=== PATIENT | male | born 1985 | race Caucasian/White ===

== ENCOUNTER 2024-08-04 08:57 | Emergency (ER) | payer BC ==
[~2024-08-04] VITALS: Ht 177.8 cm; Wt 122.9 kg
[2024-08-04] MEDS: normal saline 1000ml 1,000 ML IV ONE (11:19)
[2024-08-04] MEDS: dexamethasone sod phosphate 10mg/ml inj IV STA (11:19)
[2024-08-04] MEDS: acetaminophen 1,000mg/100ml IV 100 ML IV ONE (11:19)
[2024-08-04 11:38] LABS: MEAN CORPUSCULAR HEMOGLOBIN 29.9 PG (27.0-31.0); MEAN CORPUSCULAR HGB CONC 30.9 g/dL (33.0-36.5); MEAN CORPUSCULAR VOLUME 96.9 FL (78-98); MEAN PLATELET VOLUME 12.7 FL (7.4-10.4); RED BLOOD COUNT 1.42 X10'6 (4.70-6.10); RED CELL DISTRIBUTION WIDTH 16.7 % (11.5-14.5)
[2024-08-04 11:52] LABS: MONOTEST NEGATIVE (Neg)
[2024-08-04 11:56] LABS: ALBUMIN 2.5 G/DL (3.4-5.0); ANION GAP 12 (8-16); BLOOD UREA NITROGEN 15 MG/DL (7-18); BUN/CREATININE RATIO 9.8 (10.0-20.0); CALCIUM 8.5 MG/DL (8.5-10.1); CHLORIDE 96 MMOL/L (99-107); CREATININE 1.53 MG/DL (0.60-1.10); GLUCOSE 163 MG/DL (70-104); POTASSIUM 4.1 MMOL/L (3.5-5.1); SODIUM 130 MMOL/L (135-145); TOTAL CARBON DIOXIDE 22.3 MMOL/L (24-32); eCRCL 68 ML/MIN; eGFR 51 ML/MIN
[2024-08-04 11:58] LABS: HEMATOCRIT 13.8 % (42.0-52.0)
[2024-08-04 11:59] LABS: HEMOGLOBIN 4.7 g/dl (14.0-17.9); PLATELET COUNT 15 X10'3 (140-440)
[2024-08-04 12:00] LABS: WHITE BLOOD COUNT 372.1 X10'3 (4.5-11.0)
[2024-08-04] MEDS: piperacillin/tazo 4.5gm/100ml 100 ML IV ONE (12:05)
[2024-08-04 12:26] LABS: RED CELL DISTRIBUTION WIDTH 16.2 % (11.5-14.5)
[2024-08-04 12:29] LABS: MEAN CORPUSCULAR HGB CONC 33.5 g/dL (33.0-36.5); MEAN CORPUSCULAR VOLUME 95.4 FL (78-98); MEAN PLATELET VOLUME 10.5 FL (7.4-10.4); RED BLOOD COUNT 2.15 X10'6 (4.70-6.10)
[2024-08-04 12:34] LABS: HEMATOCRIT 20.5 % (42.0-52.0); HEMOGLOBIN 6.9 g/dl (14.0-17.9)
[2024-08-04 12:35] LABS: PLATELET COUNT 15 X10'3 (140-440)
[2024-08-04 13:03] LABS: WHITE BLOOD COUNT 271.3 X10'3 (4.5-11.0)
[2024-08-04 14:59] LABS: TOTAL CELLS COUNTED 100
[2024-08-04 15:03] LABS: ANISOCYTOSIS 1+; PLATELET ESTIMATE DECREASED
[2024-08-04 15:04] LABS: SCHISTOCYTES FEW
[2024-08-04 15:18] LABS: BILIRUBIN,URINE NEGATIVE (Neg); CLARITY,URINE CLEAR (Clear); COLOR,URINE YELLOW (Yellow); GLUCOSE, URINE NEGATIVE (Neg); KETONES,URINE TRACE mg/dl (Neg); LEUKOCYTE ESTERASE ,URINE NEGATIVE (Neg); NITRITES, URINE NEGATIVE (Neg); OCCULT BLOOD,URINE TRACE-INTACT (Neg); PROTEIN,URINE NEGATIVE (Neg); UROBILINOGEN,URINE 0.2 E.U/dL (0.2-1.0)
[2024-08-04 15:20] LABS: UA COLLECTION TYPE CLN CATCH MIDSTREAM
[2024-08-04 15:37] LABS: BACTERIA,URINE FEW /HPF (Neg); RBC,URINE NONE SEEN /HPF (0-2); SQUAMOUS EPITHELIAL CELL,UR FEW /LPF (FEW); WBC,URINE 20-30 /HPF (0-4)
[2024-08-04 17:32] LABS: URIC ACID 5.4 MG/DL (3.5-7.2)
[2024-08-04 17:45] LABS: APTT 28 SECONDS (22-32)
[2024-08-04 18:15] LABS: FIBRINOGEN 533 MG/DL (177-424); INR 1.3 INR; PROTHROMBIN TIME 13.6 SECONDS (9.0-12.0)
[2024-08-04] MEDS ORDERED: piperacillin/tazo 4.5gm/100ml 100 ML IV SCH (20:00)
[2024-08-04 20:32] LABS: HEMOGLOBIN 7.5 g/dl (14.0-17.9); MEAN CORPUSCULAR VOLUME 95.9 FL (78-98)
[2024-08-04 20:35] LABS: HEMATOCRIT 22.1 % (42.0-52.0); MEAN CORPUSCULAR HEMOGLOBIN 32.4 PG (27.0-31.0); MEAN CORPUSCULAR HGB CONC 33.8 g/dL (33.0-36.5); RED CELL DISTRIBUTION WIDTH 16.3 % (11.5-14.5); WHITE BLOOD COUNT 270.7 X10'3 (4.5-11.0)
[2024-08-04 20:45] LABS: ALBUMIN 2.3 G/DL (3.4-5.0); ANION GAP 8 (8-16); BLOOD UREA NITROGEN 14 MG/DL (7-18); BUN/CREATININE RATIO 11.2 (10.0-20.0); CHLORIDE 98 MMOL/L (99-107); CREATININE 1.25 MG/DL (0.60-1.10); GLUCOSE 185 MG/DL (70-104); LACTATE DEHYDROGENASE 1532 U/L (85-227); MAGNESIUM 2.2 MG/DL (1.5-2.4); PHOSPHORUS 3.5 MG/DL (2.3-4.5); POTASSIUM 3.8 MMOL/L (3.5-5.1); SODIUM 133 MMOL/L (135-145); TOTAL CARBON DIOXIDE 27.5 MMOL/L (24-32); URIC ACID 5.2 MG/DL (3.5-7.2); eCRCL 84 ML/MIN; eGFR 65 ML/MIN
[2024-08-04 20:55] LABS: ANISOCYTOSIS 1+; PLATELET ESTIMATE DECREASED; TOTAL CELLS COUNTED 100
[2024-08-04 20:58] LABS: PLATELET COUNT 25 X10'3 (140-440)
[2024-08-04] MEDS: allopurinol 300 MG tablet PO SCH (21:39)
[2024-08-04] MEDS: normal saline 1000ml 1,000 ML IV SCH (21:48)
[2024-08-05 08:29] LABS: PLATELET COUNT 16 X10'3 (140-440)
[2024-08-05 08:49] LABS: ALBUMIN 2.3 G/DL (3.4-5.0); ANION GAP 8 (8-16); BASOPHILS % (AUTO) 0 % (0-1); BLOOD UREA NITROGEN 15 MG/DL (7-18); CHLORIDE 98 MMOL/L (99-107); CREATININE 1.15 MG/DL (0.60-1.10); GLUCOSE 196 MG/DL (70-104); LACTATE DEHYDROGENASE 1718 U/L (85-227); MAGNESIUM 2.4 MG/DL (1.5-2.4); PHOSPHORUS 2.7 MG/DL (2.3-4.5); POTASSIUM 3.5 MMOL/L (3.5-5.1); SODIUM 131 MMOL/L (135-145); eCRCL 91 ML/MIN; eGFR 72 ML/MIN
[2024-08-05 08:53] LABS: EOSINOPHILS # (AUTO) 0.2 X10'3 (0-0.9); EOSINOPHILS % (AUTO) 0.1 % (0-6); HEMOGLOBIN 7.1 g/dl (14.0-17.9); LYMPHOCYTES # (AUTO) 43.4 X10'3 (1.1-4.8); LYMPHOCYTES % (AUTO) 13.7 % (21-51); MEAN CORPUSCULAR HEMOGLOBIN 32.1 PG (27.0-31.0); MEAN CORPUSCULAR HGB CONC 33.4 g/dL (33.0-36.5); MEAN CORPUSCULAR VOLUME 96.3 FL (78-98); MONOCYTES # (AUTO) 257.6 X10'3 (0-0.9); MONOCYTES % (AUTO) 81.7 % (2-12); NEUTROPHILS # (AUTO) 14.3 X10'3 (1.8-7.7); NEUTROPHILS % (AUTO) 4.5 % (42-75); RED CELL DISTRIBUTION WIDTH 16.9 % (11.5-14.5)
[2024-08-05 09:31] LABS: HEMATOCRIT 21.1 % (42.0-52.0); PLATELET COUNT 30 X10'3 (140-440); WHITE BLOOD COUNT 315.5 X10'3 (4.5-11.0)
[2024-08-05 09:39] LABS: APTT 24 SECONDS (22-32); D-DIMER 5.04 MG/L FEU (0-0.50); INR 1.3 INR; PROTHROMBIN TIME 13.8 SECONDS (9.0-12.0)
[2024-08-05 09:41] LABS: FIBRINOGEN 513 MG/DL (177-424)
[2024-08-05 14:16] VITALS: BP 122/73; PULSE 98; RESP 25; TEMP 98.2; O2SAT 94
== END 2024-08-05 15:01 | disposition designated cancer center or children's hospital (05) ==
LOC: ER 08:58
DX: R59.0 Localized enlarged lymph nodes (principal); C95.90 Leukemia, unspecified not having achieved remission; J36 Peritonsillar abscess; R00.0 Tachycardia, unspecified; R79.1 Abnormal coagulation profile; Z79.2 Long term (current) use of antibiotics
CPT/HCPCS: 36415; 70490; 71045; 80048; 81001; 83605; 83615; 83735; 84100; 84145; 84550; 85007; 85025; 85379; 85384; 85610; 85730; 86308; 86885; 86900; 86901; 87040; 87088; 96361; 96365; 96366; 96375; 99291; J0131; J1100; J7030